=== PATIENT | male | born 1975 | race African-American/Black ===

== ENCOUNTER 2019-03-30 10:49 | Emergency (ER) | payer OTHER ==
[2019-03-30 11:05] VITALS: TEMP 98.1; BMI 33.9
--- NOTE | 2019-03-30 11:52 | PDOC ---
History of Present Illness - General Chief Complaint: Blood Pressure Problem Stated Complaint: HIGH BLOOD PRESSURE Time Seen by Provider: 03/30/19 11:13 - History of Present Illness Initial Comments: Edmundo Fitch is a 44yo man with a PMH of poorly controlled HTN, pre-diabetes, HLD, obesity s/p gastric sleeve c/b significant GERD now s/p iliana-en-y gastric bypass (2019) who presents with intermittent chest pain for several weeks. He reports that the pain is intermittent and occurs at various points around his chest and upper back. The pain worsens when he lays down. He says that he initially thought it was heartburn but had no improvement with his home omeprazole. He saw his PMD and requested a stress test, which was completed two weeks ago; he reports no abnormalities on the test. He followed up with his PMD and was told he likely had a muscle spasm. He had minimal improvement from ibuprofen, and he went to an ED two days ago. Mr Fitch says that he went to the ED because he had similar symptoms 15 years ago that resolved with a muscle relaxant, and he was hoping to get a similar medication in the ED. However, he was discharged home after pain medication. He went to urgent care today also requesting a muscle relaxant and was referred to the ED due to DBP of 120. Mr Fitch denies that the chest pain is associated with exertion, nausea/ vomiting, lightheadedness, sweating, or SOB. He has not associated the symptom with eating. He reports that his blood pressure is usually in the 140's systolic but diastolic is always between 100-110. His PMD (Dr Dora Yee) recently increased his antihypertensive meds, and he has follow up scheduled to recheck. Past History - Past Medical History Allergies/Adverse Reactions: Allergies Allergy/AdvReac Type Severity Reaction Status Date / Time No Known Allergies Allergy Verified 03/30/19 11:03 Home Medications: Ambulatory Orders Cyclobenzaprine HCl 5 mg PO Q8H PRN #6 tablet 03/30/19 Famotidine [Pepcid -] 40 mg PO BID 03/30/19 Omeprazole 40 mg PO BID 03/30/19 Valsartan [Diovan] 80 mg PO DAILY 03/30/19 COPD: No HTN: Yes Thyroid Disease: Yes - Surgical History Abdominal Surgery: Yes (gastric sleeve) Gastric Stapling: Yes (10/2018) - Psycho Social/Smoking Cessation Hx Smoking History: Never smoked Have you smoked in the past 12 months: No Hx Alcohol Use: No Drug/Substance Use Hx: No Substance Use Type: None Review of Systems - Review of Systems Comments:: General: No fevers, no chills, no weight or appetite change, no malaise HEENT: No changes in vision, no changes in hearing, no congestion, no sore throat CV: + intermittent diffuse chest pain that worsens with laying flat, no palpitations, no LE edema Pulm: No SOB, no cough, no wheezing GI: + Occasional nausea, no vomiting, no change in bowel habits, no melena. + frequent heartburn. +h/o gastric bypass : No frequency, no urgency, no dysuria Musc: + low back pain, no joint swelling, no recent injury Skin: No rash, no lesions, no erythema Endo: No excessive thirst, no heat/cold intolerance Heme: No unusual bruising or bleeding, no swollen glands Neuro: No syncope, no numbness/tingling, no focal weakness Vasc: No claudication Psych: No recent change in mood, no SI or HI *Physical Exam - Vital Signs Last Vital Signs Temp Pulse Resp BP Pulse Ox 98.1 F 95 H 18 147/113 H 99 03/30/19 10:57 03/30/19 10:57 03/30/19 10:57 03/30/19 10:57 03/30/19 10:57 ED Treatment Course - LABORATORY CBC & Chemistry Diagram: 03/30/19 12:10 03/30/19 12:10 Medical Decision Making - Medical Decision Making 03/30/19 11:52 Edmundo Fitch is a 44yo man with a PMH of poorly controlled HTN, pre-diabetes, HLD, obesity s/p gastric sleeve c/b significant GERD now s/p iliana-en-y gastric bypass (2018) who presents with intermittent chest pain for several weeks. He denies any associated symptoms but notes that the pain is worse when laying flat. He recently had a stress test 2 weeks ago and was seen by his PMD and in the ED several times. Today, he was sent from urgent care for DBP of 110. - Pt is currently asymptomatic, no chest pain, no reproducible tenderness - BP does appear to be at baseline. - Chest pain for several weeks, including stress test, two PMD visits, an ED visit, and an urgent care visit. Could still be cardiac, but one set of troponin and EKG should be adequate to evaluate. - More likely musculoskeletal, GERD, anxiety. - Appears anxious on exam - CBC, CMP, trop, EKG, CXR - Diazepam for apparent anxiety, possible musculoskeletal pain 03/30/19 14:15 - Labs reviewed. Unremarkable. Trop negative - Reassessd pt. Feeling improved following valium. BP now 138/96. - On additional questioning, pt states he took acetaminophen only twice since the pain started weeks ago. Advised to take acetaminophen for any recurrent pain. - Will d/c home to follow up with PMD. Pt also has appointments with cardiology and GI scheduled. Advised that he may need additional home medications for BP or possible anxiety. Also advised regarding home care and return precautions. Pt states understanding and agreement with this plan Discussed with Dr Gilles Downing PGY2 Discharge - Discharge Information Problems reviewed: Yes Clinical Impression/Diagnosis: Nonspecific chest pain Condition: Stable Disposition: HOME - Additional Discharge Information Prescriptions: Cyclobenzaprine HCl 5 mg PO Q8H PRN #6 tablet PRN Reason: Muscle pain - Follow up/Referral Referrals: Dora Yee MD [Primary Care Provider] - - Patient Discharge Instructions Patient Printed Discharge Instructions: Generalized Anxiety Disorder, DI for High Blood Pressure Additional Instructions: Discharge Instructions: You were seen in the emergency department for chest pain. You had an EKG, chest xray, and blood tests which were all normal. Your pain does not appear to be due to a problem with your heart or lungs. Your pain may be from acid reflux or could be related to anxiety. Home Care and Follow Up: - You may use over the counter medications as needed for pain at home. 650- 1000mg acetaminophen (Tylenol) can be used every 6-8 hours. If needed for continued pain, these medications may be alternated every 3-4 hours. - You have been prescribed a muscle relaxant called Flexeril. It is strongly recommended that you try acetaminophen first, but you may take the Flexeril every 8 hours as needed. - Consider following up with your regular doctor to determine if anxiety is contributing to your symptoms. Follow up with her within the next week to address your high blood pressure. - Seek immediate medical care if you have significant worsening of your symptoms , you have chest pain that occurs with exercise or chest pain with nausea, sweating, lightheadedness or difficulty breathing. - Post Discharge Activity
[2019-03-30] MEDS ORDERED: diazePAM 5 MG TABLET PO ONE (12:14)
[2019-03-30] MEDS ORDERED: diazePAM 5 MG TABLET ONE (12:25)
--- NOTE | 2019-03-30 12:31 | PDOC ---
Documentation entered by Imelda Gonzalez SCRIBE, acting as scribe for Vineet Campoverde MD. Vineet Campoverde MD: This documentation has been prepared by the arenibeCarlos Joy, SCRIBE, under my direction and personally reviewed by me in its entirety. I confirm that the documentation accurately reflects all work, treatment, procedures, and medical decision making performed by me. Attending Attestation - Resident Resident Name: ChangAnnie - ED Attending Attestation I have performed the following: I have examined & evaluated the patient, The case was reviewed & discussed with the resident, I agree w/resident's findings & plan, Exceptions are as noted - HPI HPI: 03/30/19 12:31 44 M with h/o HTN, HLD, gastric sleeve, presenting to ED with 2-3 weeks of chest pressure. Pt states that he has intermittent pressure like pain in his chest that comes on randomly and resolves spontaneously. He has had this sensation since his bariatric surgery, but he notes that it has become more uncomfortable in the past 3 weeks Denies any SOB. Denies any exertional or pleuritic nature of pain. States that last night he had a particularly bad episode, prompting his visit to the ED today. Pt went to urgent care today and was referred to ED because his BP was elevated. Pt is compliant with his valsartan. Denies any leg swelling. No recent travel/immobilization. Pt notes he had a stress test recently that was normal. Pt also reports seeing GI in the past and was told he had a motility problem in his esophagus. - Physicial Exam PE: 03/30/19 12:38 "GENERAL: Awake, alert, and fully oriented, in no acute distress. HEAD: No signs of trauma EYES: PERRLA, EOMI, sclera anicteric, conjunctiva clear ENT: Auricles normal inspection, hearing grossly normal, nares patent, oropharynx clear without exudates. Moist mucosa NECK: Nontender, no stepoffs, Normal ROM, supple, no lymphadenopathy, JVD, or masses LUNGS: Breath sounds equal, clear to auscultation bilaterally. No wheezes, and no crackles HEART: Regular rate and rhythm, normal S1 and S2, no murmurs, rubs or gallops ABDOMEN: Soft, nontender, normoactive bowel sounds. No guarding, no rebound. No masses EXTREMITIES: Normal range of motion, no edema. No clubbing or cyanosis. No cords, erythema, or tenderness NEUROLOGICAL: Cranial nerves II through XII intact. 5/5 strength and sensation in all extremities, Normal speech, normal gait, normal cerebellar function SKIN: Warm, Dry, normal turgor, no rashes or lesions noted. - Medical Decision Making 03/30/19 12:38 44 M with chest pressure, chronic in nature. Likely 2/2 reflux or other GI process. Pt with normal EKG. Had recent stress test that was normal. No PE risk factors, no signs of DVT. Likely some component of anxiety. - Labs - CXR - Valium 03/30/19 14:08 Labs, EKG, CXR all wnl Pt reassessed - feels much better after valium Repeat BP improved Pt is well appearing, with normal vitals. Clinically stable for DC at this time. I discussed the physical exam findings, ancillary test results and final diagnoses with the patient. I answered all of the patient's questions. The patient was satisfied with the care received and felt comfortable with the discharge plan and treatment plan. The patient agrees to follow up with the primary care physician within 24-72 hours.
[2019-03-30 13:05] LABS: BASO % 0.7 % (0-2.0); HEMATOCRIT 41.6 % (35.4-49); HEMOGLOBIN 13.5 GM/dL (11.7-16.9); LYMPH % 42.8 % (8-40); MCH 29.5 pg (25.7-33.7); MCHC 32.5 g/dl (32.0-35.9); MEAN CELL VOLUME 90.6 fl (80-96); MONO % 8.6 % (3.8-10.2); NEUT % 43.9 % (42.8-82.8); PLATELET COUNT 210 K/MM3 (134-434); RDW 14.4 % (11.9-15.9); WHITE BLOOD COUNT 3.9 K/mm3 (4.0-10.0)
[2019-03-30 13:27] VITALS: BP 138/96; PULSE 86
[2019-03-30 13:37] LABS: ALBUMIN 3.6 g/dl (3.4-5.0); ALK PHOS 82 U/L (45-117); ANION GAP 4 MMOL/L (8-16); BILIRUBIN,TOTAL 0.3 mg/dL (0.2-1); BLOOD UREA NITROGEN 10.4 mg/dL (7-18); CALCIUM 8.7 mg/dL (8.5-10.1); CHLORIDE 103 mmol/L (98-107); CO2 31 mmol/L (21-32); CREATININE 0.9 mg/dL (0.55-1.3); GLUCOSE,RANDOM 103 mg/dL (74-106); POTASSIUM 3.9 mmol/L (3.5-5.1); SGOT/AST 22 U/L (15-37); SGPT/ALT 23 U/L (13-61); SODIUM 138 mmol/L (136-145); TOT PROT 7.2 g/dl (6.4-8.2)
--- NOTE | 2019-03-30 16:57 | EKG ---
Test Reason : Blood Pressure : / mmHG Vent. Rate : 075 BPM Atrial Rate : 075 BPM P-R Int : 156 ms QRS Dur : 088 ms QT Int : 364 ms P-R-T Axes : 052 031 033 degrees QTc Int : 406 ms NORMAL SINUS RHYTHM NORMAL ECG WHEN COMPARED WITH ECG OF 29-JUN-2017 20:56, NO SIGNIFICANT CHANGE WAS FOUND Confirmed by MAYANK YORK MD ([id number]) on 03/30/2019 4:56:56 PM Referred By: Confirmed By:MAYANK YORK MD
== END 2019-03-30 14:44 | disposition home or self-care (01) ==
LOC: JER 10:49
DX: R07.9 Chest pain, unspecified (principal); I10 Essential (primary) hypertension; E78.5 Hyperlipidemia, unspecified; R73.03 Prediabetes; E66.9 Obesity, unspecified; Z68.33 Body mass index [BMI] 33.0-33.9, adult; Z98.84 Bariatric surgery status; E07.9 Disorder of thyroid, unspecified
CPT/HCPCS: 36415; 71046-TC-FY; 80053; 82550; 82553; 84484; 85025; 93005; 93010; 99283-25

== ENCOUNTER 2019-05-22 09:28 | Day surgery (SDC) | payer OTHER ==
[2019-05-21 15:13] VITALS: BMI 35.8
[2019-05-22 10:46] VITALS: TEMP 97.6
[2019-05-22 11:37] VITALS: BP 133/84; PULSE 72
--- NOTE | 2019-05-23 16:25 | PATH ---
Surgical Pathology Report Patient Name: PEDRO CAN [facility]. Rec. #: [id number] /Age/Gender: 1975 (Age: 44) / M Account: [id number] Location: [facility]-ENDOSCOPY Taken: 05/22/2019 Received: 05/22/2019 Reported: 05/23/2019 Physicians: Tj Samuel D.O. Specimen(s) Received A: SMALL BOWEL B: GASTRIC POUCH Clinical History Nausea Postoperative diagnosis: Gastric bypass anatomy, nausea Final Diagnosis A. SMALL BOWEL, BIOPSY: SMALL INTESTINAL MUCOSA WITH NO SIGNIFICANT PATHOLOGIC CHANGE. THE ARCHITECTURE OF VILLI APPEARS NORMAL. NO HISTOLOGIC EVIDENCE OF INTRAEPITHELIAL LYMPHOCYTOSIS. B. GASTRIC POUCH, BIOPSY: GASTRIC MUCOSA WITH CHRONIC GASTRITIS. IMMUNOSTAIN FOR H. PYLORI IS NEGATIVE. NEGATIVE FOR INTESTINAL METAPLASIA. Electronically Signed Estrellita Ramirez M.D. Gross Description A. Received in formalin, labeled "biopsy small bowel" are 6 ford, irregular portions of soft tissue ranging from 0.1-0.4 cm. in greatest dimension. The specimens are submitted in toto in one cassette. B. Received in formalin, labeled "biopsy gastric pouch" are 2 ford, irregular portions of soft tissue measuring 0.3 and 0.4 cm. in greatest dimension. The specimens are submitted in toto in one cassette. 05/22/2019 [facility]05/22/2019
== END 2019-05-22 11:20 | disposition home or self-care (01) ==
LOC: JASU-ENDO 09:28
PROVIDERS: ATTEND Internal Medicine Gastroenterology
PROC: 0DB68ZX Excision of Stomach, Via Natural or Artificial Opening Endoscopic, Diagnostic (ICD-10-PCS; 2019-05-22)
PROC: 0DBA8ZX Excision of Jejunum, Via Natural or Artificial Opening Endoscopic, Diagnostic (ICD-10-PCS; principal; 2019-05-22 10:15)
DX: K29.50 Unspecified chronic gastritis without bleeding (principal); R11.0 Nausea; Z98.84 Bariatric surgery status
CPT/HCPCS: 88305-TC; 88342-TC